=== PATIENT | female | born 1980 | race Caucasian/White ===

== ENCOUNTER 2018-02-01 11:01 | Emergency (ER) | payer OTHER ==
--- NOTE | 2018-02-01 11:01 | NUR ---
Per ER admitting pt decided not to be seen.
== END 2018-02-01 11:25 | disposition left against medical advice (07) ==
LOC: ER 11:01
DX: Z53.21 Procedure and treatment not carried out due to patient leaving prior to being seen by health care provider (principal)

== ENCOUNTER → 2018-02-01 | Outpatient (CLI) | payer OTHER ==
[2018-02-02 10:07] LABS: HEPATITIS B SURFACE AB Reactive (.)
== END | disposition home or self-care (01) ==
LOC: LAB 11:08
DX: Z02.9 Encounter for administrative examinations, unspecified (principal)
CPT/HCPCS: 36415; 86706; 86803; 87806